=== PATIENT | female | born 1995 | race Caucasian/White ===

== ENCOUNTER 2021-08-31 13:42 | Outpatient (CLI) | payer BC ==
[~2021-08-31 13:42] MED LIST: Magnevist 469MG/ML 20 ML VIAL ONE
== END 2021-08-31 13:43 | disposition home or self-care (01) ==
LOC: BICMRI 13:42
PROVIDERS: ATTEND Orthopaedic Surgery Hand Surgery
DX: G54.0 Brachial plexus disorders (principal)
CPT/HCPCS: 71552